=== PATIENT | female | born 1980 ===

== ENCOUNTER 2022-01-14 02:00 | Emergency (ER) | payer SELFPAY ==
[2022-01-14 02:12] LABS: ANION GAP 11.9 mEq/L (7-13)
[2022-01-14] MEDS: MVI, Adult with Vitamin K 10 ML, Folic Acid 1 MG, Thiamine 100 MG in Lactated Ringers 1... IV ONE ×4 (02:43)
[2022-01-14] MEDS: Ondansetron 4 MG/2 ML SDV IVPUSH ONE (02:59)
== END 2022-01-14 06:15 | disposition home or self-care (01) ==
LOC: DL.ED 02:00
DX: F10.10 Alcohol abuse, uncomplicated (principal); Y90.8 Blood alcohol level of 240 mg/100 ml or more; Z91.013 Allergy to seafood
CPT/HCPCS: 36415; 80053; 80143; 80179; 80307; 83735; 85025; 96365; 96375; 99284; J2405; J3411; J7120; J3490